=== PATIENT | female | born 1970 | race Caucasian/White ===

== ENCOUNTER 2018-10-22 15:38 | Emergency (ER) | payer SELFPAY ==
[2018-10-22 15:56] VITALS: BP 156/92; PULSE 85; TEMP 98.8; BMI 24.4
--- NOTE | 2018-10-22 15:56 | PDOC ---
Rapid Medical Evaluation Time Seen by Provider: 10/22/18 15:53 Medical Evaluation: 10/22/18 15:53 I have performed a brief in-person evaluation of this patient. The patient presents with a chief complaint of: cough w/ fever w/ body aches and malaise x 5 days Pertinent physical exam findings:stable and well soy I have ordered the following:flu swab collected and sent The patient will proceed to the ED for further evaluation. 10/22/18 15:57 Discharge Disposition - Diagnosis Viral syndrome - Referrals - Patient Instructions - Post Discharge Activity
--- NOTE | 2018-10-22 16:26 | PDOC ---
History of Present Illness - General Chief Complaint: Cold Symptoms Stated Complaint: COUGH Time Seen by Provider: 10/22/18 15:53 History Source: Patient Exam Limitations: Language Barrier - History of Present Illness Initial Comments: 10/22/18 16:30 47 yr female with cough for 5 days body aches, fever last week. non smoker, no pmhx no allergies Past History - Past Medical History Allergies/Adverse Reactions: Allergies Allergy/AdvReac Type Severity Reaction Status Date / Time No Known Allergies Allergy Verified 10/22/18 16:27 Home Medications: Ambulatory Orders Albuterol Sulfate Inhaler - [Ventolin HFA Inhaler -] 1 - 2 inh PO QID #1 inhaler 10/22/18 Prednisone [Deltasone] 40 mg PO DAILY #10 tablet 10/22/18 COPD: No - Immunization History Immunization Up to Date: Yes - Suicide/Smoking/Psychosocial Hx Smoking History: Never smoked Information on smoking cessation initiated: No Hx Alcohol Use: No Drug/Substance Use Hx: No Substance Use Type: None Review of Systems - Review of Systems Able to Perform ROS?: Yes Is the patient limited Hungarian proficient: No Constitutional: Yes: Symptoms Reported, Fever HEENTM: No: Symptoms Reported Respiratory: Yes: Cough Cardiac (ROS): No: Symptoms Reported ABD/GI: No: Symptoms Reported : No: Symptoms Reported Musculoskeletal: No: Symptoms Reported Integumentary: No: Symptoms Reported Neurological: No: Symptoms reported *Physical Exam - Vital Signs Last Vital Signs Temp Pulse Resp BP Pulse Ox 98.8 F 85 16 156/92 100 10/22/18 15:54 10/22/18 15:54 10/22/18 15:54 10/22/18 15:54 10/22/18 15:54 - Physical Exam General Appearance: Yes: Nourished, Appropriately Dressed HEENT: positive: EOMI, ANGEL, Normal ENT Inspection, TMs Normal, Pharynx Normal Neck: positive: Supple. negative: Tender Respiratory/Chest: positive: Lungs Clear, Normal Breath Sounds. 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, Fully Oriented, Alert, Normal Mood/ Affect, Normal Response, Motor Strength 5/5 Moderate Sedation - Procedure Monitoring Vital Signs: Procedure Monitoring Vital Signs Temperature 98.8 F 10/22/18 15:54 Pulse Rate 85 10/22/18 15:54 Respiratory Rate 16 10/22/18 15:54 Blood Pressure 156/92 10/22/18 15:54 O2 Sat by Pulse Oximetry (%) 100 10/22/18 15:54 Medical Decision Making - Medical Decision Making 10/22/18 16:31 cc: cough , body aches for 5 days fever 3 days ago took nyquil at home non smoker productive cough white phlegm will give duoneb x1, motrin *DC/Admit/Observation/Transfer Diagnosis at time of Disposition: Viral syndrome, Bronchitis - Discharge Dispostion Disposition: HOME Condition at time of disposition: Good - Prescriptions Prescriptions: Albuterol Sulfate Inhaler - [Ventolin HFA Inhaler -] 1 - 2 inh PO QID #1 inhaler Prednisone [Deltasone] 40 mg PO DAILY #10 tablet - Referrals - Patient Instructions Printed Discharge Instructions: DI for Acute Bronchitis Additional Instructions: drink pleanty of fluids daily take the medications as prescribed prednisone for 5 days to help with cough and lungs albuterol inhaler as directed please see your primary care THURSDAY for follow up visit return if any worsening symptoms FLU swab was NEGATIVE - Post Discharge Activity
[2018-10-22] MEDS ORDERED: ALBUTEROL SO4 2.5/IPRATROPIUM 0.5 INH SOL 3 ML VIAL.NEB. NEB ONE ×2 (16:29→16:38)
[2018-10-22] MEDS ORDERED: IBUPROFEN 600 MG TABLET (FP) PO ONE ×2 (16:30→16:38)
== END 2018-10-22 17:14 | disposition home or self-care (01) ==
LOC: JERFT 15:38
PROC: 3E0F7GC Introduction of Other Therapeutic Substance into Respiratory Tract, Via Natural or Artificial Opening (ICD-10-PCS; principal; 2018-10-22)
DX: J40 Bronchitis, not specified as acute or chronic (principal); B34.9 Viral infection, unspecified
CPT/HCPCS: 87804; 99281-25

== ENCOUNTER 2018-10-30 01:24 | Emergency (ER) | payer SELFPAY ==
[2018-10-30 03:32] VITALS: BP 150/99; PULSE 98; TEMP 98.5; BMI 24.4
--- NOTE | 2018-10-30 04:47 | PDOC ---
History of Present Illness - General Chief Complaint: Cold Symptoms Stated Complaint: COUGH History Source: Patient Exam Limitations: No Limitations - History of Present Illness Initial Comments: 10/30/18 04:58 Best Contact: PCP:Dr. Hudson Pmhx:Asthma Pshx:N/A Allergies: NKDA FH:0 Social Hx: Cigarettes/ 0 Alcohol/ 0 Drugs/0 LMP:10/24/2018 47 yo F presents to the ER c/o 10 days of greenish productive cough with subjective fever but denies chills, n/v/d, cano, dizziness/lightheadedness, facial pain, earache/sore throat, rhinnorhea/nasal congestion, neck stiffness/ pain, back pain, cp, sob, abd pain, urinary symptoms. Past History - Past Medical History Allergies/Adverse Reactions: Allergies Allergy/AdvReac Type Severity Reaction Status Date / Time No Known Allergies Allergy Verified 10/22/18 16:27 Home Medications: Ambulatory Orders Albuterol Sulfate Inhaler - [Ventolin HFA Inhaler -] 1 - 2 inh PO QID #1 inhaler 10/22/18 Prednisone [Deltasone] 40 mg PO DAILY #10 tablet 10/22/18 Azithromycin [Zithromax -] 250 mg PO UTDICT #6 tab 10/30/18 COPD: No - Immunization History Immunization Up to Date: Yes - Suicide/Smoking/Psychosocial Hx Smoking History: Never smoked Hx Alcohol Use: No Drug/Substance Use Hx: No Substance Use Type: None Review of Systems - Review of Systems Able to Perform ROS?: Yes Comments:: 10/30/18 04:57 CONSTITUTIONAL: +subjective fever Absent: chills, diaphoresis, generalized weakness, malaise, loss of appetite HEENT: Absent: rhinorrhea, nasal congestion, throat pain, throat swelling, difficulty swallowing, mouth swelling, ear pain, eye pain, visual Changes CARDIOVASCULAR: Absent: chest pain, loss of consciousness, palpitations, irregular heart rate, peripheral edema RESPIRATORY: +productive cough Absent: shortness of breath, dyspnea with exertion, orthopnea, wheezing, stridor, hemoptysis GASTROINTESTINAL: Absent: abdominal pain, abdominal distension, nausea, vomiting, diarrhea, constipation, melena, hematochezia GENITOURINARY: Absent: dysuria, frequency, urgency, hesitancy, hematuria, flank pain, genital pain MUSCULOSKELETAL: Absent: myalgia, arthralgia, joint swelling SKIN: Absent: rash, itching, pallor HEMATOLOGIC/IMMUNOLOGIC: Absent: easy bleeding, easy bruising, lymphadenopathy, frequent infections ENDOCRINE: Absent: unexplained weight gain, unexplained weight loss, heat intolerance, cold intolerance NEUROLOGIC: Absent: headache, focal weakness or paresthesias, dizziness, unsteady gait, seizure, mental status changes, bladder or bowel incontinence PSYCHIATRIC: Absent: anxiety, depression, suicidal or homicidal ideation, hallucinations. 10/30/18 04:58 Is the patient limited Kinyarwanda proficient: No *Physical Exam - Vital Signs Last Vital Signs Temp Pulse Resp BP Pulse Ox 98.5 F 98 H 19 150/99 97 10/30/18 02:05 10/30/18 02:05 10/30/18 02:05 10/30/18 02:05 10/30/18 02:05 - Physical Exam Comments: 10/30/18 04:58 GENERAL: Well developed, well nourished. Awake and alert. No acute distress. HEENT: Normocephalic, atraumatic. PERRLA, EOMI. No conjunctival pallor. Sclera are non- icteric. Moist mucous membranes. Oropharynx is clear. NECK: Supple. Full ROM. No JVD. Carotid pulses 2+ and symmetric, without bruits. No thyromegaly. No lymphadenopathy. CARDIOVASCULAR: Regular rate and rhythm. No murmurs, rubs, or gallops. Distal pulses are 2+ and symmetric. PULMONARY: No evidence of respiratory distress. Lungs clear to auscultation bilaterally. No wheezing, rales or rhonchi. ABDOMINAL: Soft. Non-tender. Non-distended. No rebound or guarding. No organomegaly. Normoactive bowel sounds. MUSCULOSKELETAL Normal range of motion at all joints. No bony deformities or tenderness. No CVA tenderness. EXTREMITIES: No cyanosis. No clubbing. No edema. No calf tenderness. SKIN: Warm and dry. Normal capillary refill. No rashes. No jaundice. NEUROLOGICAL: Alert, awake, appropriate. Cranial nerves 2-12 intact. No deficits to light touch and temperature in face, upper extremities and lower extremities. No motor deficits in the in face, upper extremities and lower extremities. Normoreflexic in the upper and lower extremities. Normal speech. Toes are down- going bilaterally. Gait is normal without ataxia. PSYCHIATRIC: Cooperative. Good eye contact. Appropriate mood and affect. Moderate Sedation - Procedure Monitoring Vital Signs: Procedure Monitoring Vital Signs Temperature 98.5 F 10/30/18 02:05 Pulse Rate 98 H 10/30/18 02:05 Respiratory Rate 19 10/30/18 02:05 Blood Pressure 150/99 10/30/18 02:05 O2 Sat by Pulse Oximetry (%) 97 10/30/18 02:05 *DC/Admit/Observation/Transfer Diagnosis at time of Disposition: Bronchitis - Discharge Dispostion Disposition: HOME Condition at time of disposition: Stable Decision to Admit order: No - Prescriptions Prescriptions: Azithromycin [Zithromax -] 250 mg PO UTDICT #6 tab - Referrals Referrals: Franko Martinez MD [Staff Physician] - - Patient Instructions Printed Discharge Instructions: DI for Acute Bronchitis Additional Instructions: Increase fluids Tylenol alternating with Motrin every 6 hours as needed for fever [id number] supportive care Return back to the ER for severe/persistent or worsening symptoms Aumente los fluidos Tylenol alternando con Motrin cada 6 horas segn sea necesario para la fiebre Atencin de apoyo de venta chandler Volver a la ER para los sntomas graves/persistentes o que empeoran Print Language: SWAZI - Post Discharge Activity
== END 2018-10-30 04:56 | disposition home or self-care (01) ==
LOC: JER 01:24
DX: J40 Bronchitis, not specified as acute or chronic (principal)
CPT/HCPCS: 99281-25